=== PATIENT | female | born 1995 | race Caucasian/White ===

== ENCOUNTER 2016-12-28 10:01 | Emergency (ER) | payer OTHER ==
[2016-12-28 10:30] VITALS: BP 117/85
--- NOTE | 2016-12-28 10:53 | UC ---
Throat Pain/Nasal Sascha HPI - HPI Summary HPI Summary: [address], minimal cough, mild congestio/sinus drainage. pt has h/o of environmental allergies and chronically swollen tonsils. - History of Current Complaint Chief Complaint: UCRespiratory Stated Complaint: SORE THROAT,COUGH Time Seen by Provider: 12/28/16 10:27 Hx Obtained From: Patient Hx Last Menstrual Period: November 2015 ?: No Onset/Duration: Gradual Onset, Lasting Days - 5, Still Present Severity: Moderate Pain Intensity: 8 Cough: Nonproductive - minimal Associated Signs & Symptoms: Positive: Dysphagia - painful, Nasal Discharge. Negative: FB Sensation, Drooling, Wheezing, Hoarseness, Sinus Discomfort, Fever , Vomiting, Rash Related History: Seasonal Allergies - Allergies/Home Medications Allergies/Adverse Reactions: Allergies Allergy/AdvReac Type Severity Reaction Status Date / Time No Known Allergies Allergy Verified 12/28/16 10:25 Home Medications: Home Medications Norethindrone/Eth Est 1.02/09NF [Junel .02/09 (NF)] 1 tab PO DAILY 12/28/16 [ History Confirmed 12/28/16] PMH/Surg Hx/FS Hx/Imm Hx Previously Healthy: Yes - Surgical History Surgical History: None - Family History Known Family History: Positive: Diabetes Negative: Cardiac Disease, Hypertension - Social History Occupation: Student Alcohol Use: Weekly Alcohol Amount: 2xweek Substance Use Type: None Smoking Status (MU): Never Smoked Tobacco - Immunization History Most Recent Influenza Vaccination: 2015 Most Recent Tetanus Shot: UTD Most Recent Pneumonia Vaccination: N/A Review of Systems Constitutional: Negative Skin: Negative Eyes: Negative ENT: Sore Throat, Nasal Discharge Respiratory: Cough - minimal Cardiovascular: Negative Gastrointestinal: Negative Neurological: Negative All Other Systems Reviewed And Are Negative: Yes Physical Exam Triage Information Reviewed: Yes Appearance: Well-Appearing, No Pain Distress, Well-Nourished Vital Signs: Initial Vital Signs Temp 98.4 F 12/28/16 10:26 Pulse 85 12/28/16 10:26 Resp 18 12/28/16 10:26 BP 117/85 12/28/16 10:26 Pulse Ox 99 12/28/16 10:26 Vital Signs Reviewed: Yes Eyes: Positive: Conjunctiva Clear. Negative: Discharge ENT: Positive: Hearing grossly normal, Pharyngeal erythema, Nasal congestion, Nasal drainage, TMs normal, Tonsillar swelling. Negative: Tonsillar exudate, Trismus, Muffled/hoarse voice Dental Exam: Normal Neck: Positive: Supple, Nontender, Enlarged Nodes @ Respiratory: Positive: Lungs clear, Normal breath sounds, No respiratory distress, No accessory muscle use Cardiovascular: Positive: RRR, No Murmur Musculoskeletal Exam: Normal Neurological: Positive: Alert, Muscle Tone Normal Psychological: Positive: Age Appropriate Behavior Skin Exam: Normal Throat Pain/Nasal Course/Dx - Differential Dx/Diagnosis Differential Diagnosis/HQI/PQRI: Pharyngitis, Sinusitis, Tonsillitis, URI, Other - allergies Provider Diagnoses: pharyngitis Discharge - Discharge Plan Condition: Stable Disposition: HOME Patient Education Materials: Pharyngitis (ED) Referrals: No Primary Care Phys,NOPCP [Primary Care Provider] - Additional Instructions: DISCUSSED, TRY MAGIC MOUTHWASH TO CONTROL PAIN PRIOR TO EATING.
== END 2016-12-28 11:10 | disposition home or self-care (01) ==
LOC: UCCORT 10:01
DX: J02.9 Acute pharyngitis, unspecified (principal); R09.81 Nasal congestion; R05 Cough
CPT/HCPCS: 87651; 99202; G0463